=== PATIENT | female | born 1995 | race Caucasian/White ===

== ENCOUNTER → 2021-05-12 10:28 | Outpatient (CLI) | payer OTHER, SELFPAY ==
--- NOTE | 2021-05-12 10:31 | DI.RAD.S_ITS ---
PROCEDURE: XR TIBIA FIBULA LT 2V INDICATIONS: tibial fracture TECHNIQUE: 2 views of the tibia and fibula were acquired. COMPARISON: None. FINDINGS: Bones: Mildly displaced posterior malleolus fracture. Possible avulsion injury involving the anterior margin of the tibia. Soft tissues: No suspicious soft tissue calcifications or masses. IMPRESSION: Mildly displaced posterior malleolus fracture and possible avulsion fracture of the anterior tibia. Dictated by: Minda Olvera MD, PhD on 05/12/2021 at 9:49 Approved by: Minda Olvera MD, PhD on 05/12/2021 at 9:51
== END ==
PROVIDERS: Referring Provider Nurse Practitioner Family; Visit Provider Nurse Practitioner Family
DX: S82.892A Other fracture of left lower leg, initial encounter for closed fracture (principal); S89.92XA Unspecified injury of left lower leg, initial encounter; X58.XXXA Exposure to other specified factors, initial encounter
CPT/HCPCS: 73590